=== PATIENT | male | born 1960 | race African-American/Black ===

== ENCOUNTER 2023-05-30 03:05 | Inpatient (IN) | payer SELFPAY ==
[2023-05-30 09:31] VITALS: BMI 21.1
[2023-05-30] MEDS ORDERED: Bisacodyl 5 MG TAB PO PRN (10:24)
[2023-05-30] MEDS ORDERED: Senokot S 8.6-50 MG TAB PO PRN (10:24)
[2023-05-30] MEDS ORDERED: Acetaminophen 650 MG Suppository PR PRN (10:24)
[2023-05-30] MEDS ORDERED: Bisacodyl 10 MG SUPP PR PRN (10:24)
[2023-05-30] MEDS ORDERED: Ondansetron PF 4 MG/2 ML Vial IVP PRN (10:24)
[2023-05-30] MEDS ORDERED: Lorazepam 2 MG/ML VIAL IM PRN (10:33)
[2023-05-30] MEDS ORDERED: Lorazepam 1 MG TAB PO PRN (10:33)
[2023-05-30] MEDS ORDERED: Electrolyte Replacement Protocol 1 EACH FS SCH (10:45)
[2023-05-30] MEDS ORDERED: Lorazepam 1 MG TAB PO SCH (10:45)
[2023-05-30] MEDS: Thiamine HCl 200 MG/2 ML VIAL SLOW IVP SCH (12:08)
[2023-05-30] MEDS ORDERED: Atorvastatin Calcium 40 MG TAB PO SCH (21:00)
[2023-05-31 07:36] LABS: #Eosinphils 0.2 thou/uL (0.0-0.7); #Monocytes 0.3 thou/uL (0.11-0.59); #Neutrophils 1.9 thou/uL (1.40-6.50); %Basophils 0.5 % (0.0-1.0); %Eosinophils 5.1 % (0.0-10.0); %Lymphocytes 34.6 % (21.0-51.0); %Monocytes 8.3 % (0.0-10.0); %Neutrophils 51.2 % (42.0-75.0); Hematocrit 40.4 % (42.0-52.0); Hemoglobin 13.2 g/dL (14.0-18.0); Mean Corpuscular HGB CONC 32.7 g/dL (32.0-36.0); Mean Corpuscular Hemoglobin 30.4 pg (27.0-31.0); Mean Corpuscular Volume 93.1 fl (78.0-98.0); Mean Platelet Volume 9.4 fL (7.4-10.4); Platelet Count 204 10x3/uL (130-400); RBC Distribution Width 14.6 % (11.5-14.5); Red Blood Cell (RBC) Count 4.34 mill/uL (4.70-6.10); White Blood Cell (WBC) Count 3.7 10x3/uL (4.8-10.8)
[2023-05-31 07:44] LABS: Hemoglobin A1c 5.2 % (4.0-6.0)
[2023-05-31 07:58] LABS: ALT (SGPT) Less than 7 U/L (8-55); AST (SGOT) 10 U/L (5-34); Albumin 3.2 g/dL (3.4-4.8); Alkaline Phosphatase 65 U/L (40-110); Bilirubin, Direct 0.3 mg/dL (0.1-0.3); Bilirubin, Total 0.6 mg/dL (0.2-1.2); Protein, Total 5.7 g/dL (5.8-8.1)
[2023-05-31 08:00] LABS: Anion Gap 8 mmol/L (10-20); BUN (Urea Nitrogen) 12 mg/dL (8.4-25.7); Calc. Creatinine Clearance 97 mL/min (70-130); Calcium 8.3 mg/dL (7.8-10.44); Carbon Dioxide 22 mmol/L (23-31); Cardiac Risk 2.3 (Less than 4.5); Chloride 111 mmol/L (98-107); Cholesterol 135 mg/dl (< 200 Desired); Estimated GFR 105; Glucose 100 mg/dL (80-115); HDL Cholesterol 58 mg/dL (>60 Neg Risk); LDL Cholesterol, Calculated 69 mg/dL; Magnesium 1.7 mg/dL (1.6-2.6); Potassium 3.4 mmol/L (3.5-5.1); Sodium 138 mmol/L (136-145); Triglycerides 38 mg/dL (Less than 150)
[2023-05-31] MEDS ORDERED: Potassium Chloride 20 MEQ TAB PO SCH (09:00)
[2023-05-31] MEDS ORDERED: Clopidogrel Bisulfate 75 MG TAB PO SCH (09:00)
[2023-05-31] MEDS ORDERED: Magnesium 2 GM/50 ML(in water) 2 GM in Premix Bag 1 BAG IVPB SCH (09:00)
[2023-05-31] MEDS: Aspirin 81 mg Enteric Coated Tablet PO SCH (09:29)
[2023-05-31] MEDS: Folic Acid 1 MG TAB PO SCH (09:30)
[2023-05-31] MEDS: Multivit, Therapeutic 1 TAB PO SCH (09:30)
[2023-05-31] MEDS ORDERED: Lorazepam 1 MG TAB PO PRN (10:33)
[2023-05-31] MEDS: Thiamine HCl 200 MG/2 ML VIAL SLOW IVP SCH (12:45)
[2023-05-31] MEDS: Sodium Chloride 0.9% 1,000 ML IV SCH (16:45)
[2023-05-31] MEDS: Dexamethasone 4 mg/ml Vial SLOW IVP SCH (20:28)
[2023-05-31] MEDS: Acetaminophen 325 MG TAB PO PRN (20:29)
[2023-06-01 05:24] LABS: #Monocytes 0.1 thou/uL (0.11-0.59); #Neutrophils 3.5 thou/uL (1.40-6.50); %Basophils 0.5 % (0.0-1.0); %Eosinophils 0.2 % (0.0-10.0); %Lymphocytes 16.2 % (21.0-51.0); %Monocytes 2.7 % (0.0-10.0); %Neutrophils 79.7 % (42.0-75.0); Hematocrit 42.3 % (42.0-52.0); Hemoglobin 13.9 g/dL (14.0-18.0); Mean Corpuscular HGB CONC 32.9 g/dL (32.0-36.0); Mean Corpuscular Hemoglobin 30.7 pg (27.0-31.0); Mean Corpuscular Volume 93.4 fl (78.0-98.0); Mean Platelet Volume 9.1 fL (7.4-10.4); Platelet Count 213 10x3/uL (130-400); RBC Distribution Width 14.4 % (11.5-14.5); Red Blood Cell (RBC) Count 4.53 mill/uL (4.70-6.10); White Blood Cell (WBC) Count 4.4 10x3/uL (4.8-10.8)
[2023-06-01 05:56] LABS: Anion Gap 9 mmol/L (10-20); BUN (Urea Nitrogen) 8 mg/dL (8.4-25.7); Calc. Creatinine Clearance 92 mL/min (70-130); Calcium 8.5 mg/dL (7.8-10.44); Carbon Dioxide 21 mmol/L (23-31); Chloride 108 mmol/L (98-107); Estimated GFR 104; Glucose 146 mg/dL (80-115); Magnesium 1.8 mg/dL (1.6-2.6); Potassium 3.9 mmol/L (3.5-5.1); Sodium 134 mmol/L (136-145)
[2023-06-01] MEDS: Sodium Chloride 0.9% 1,000 ML IV SCH (07:21)
[2023-06-01] MEDS ORDERED: Magnesium 2 GM/50 ML(in water) 2 GM in Premix Bag 1 BAG IVPB SCH (08:00)
[2023-06-01] MEDS: Multivit, Therapeutic 1 TAB PO SCH (08:51)
[2023-06-01] MEDS: Dexamethasone 4 mg/ml Vial SLOW IVP SCH ×3 (08:51→22:06)
[2023-06-01] MEDS: Folic Acid 1 MG TAB PO SCH (08:51)
[2023-06-01] MEDS: Aspirin 81 mg Enteric Coated Tablet PO SCH (08:51)
[2023-06-01] MEDS ORDERED: Lorazepam 1 MG TAB PO PRN (10:33)
[2023-06-01] MEDS ORDERED: Lorazepam 0.5 MG TAB PO SCH (10:45)
[2023-06-01] MEDS: Thiamine HCl 200 MG/2 ML VIAL SLOW IVP SCH (13:10)
[2023-06-01] MEDS: Acetaminophen 325 MG TAB PO PRN (22:05)
[2023-06-02 06:10] LABS: #Monocytes 0.3 thou/uL (0.11-0.59); #Neutrophils 8.8 thou/uL (1.40-6.50); %Basophils 0.1 % (0.0-1.0); %Lymphocytes 9.2 % (21.0-51.0); %Monocytes 2.7 % (0.0-10.0); %Neutrophils 87.5 % (42.0-75.0); Hematocrit 43.4 % (42.0-52.0); Hemoglobin 14.3 g/dL (14.0-18.0); Mean Corpuscular HGB CONC 32.9 g/dL (32.0-36.0); Mean Corpuscular Hemoglobin 30.6 pg (27.0-31.0); Mean Corpuscular Volume 92.7 fl (78.0-98.0); Mean Platelet Volume 9.3 fL (7.4-10.4); Platelet Count 241 10x3/uL (130-400); RBC Distribution Width 14.3 % (11.5-14.5); Red Blood Cell (RBC) Count 4.68 mill/uL (4.70-6.10)
[2023-06-02 06:31] LABS: Anion Gap 9 mmol/L (10-20); BUN (Urea Nitrogen) 9 mg/dL (8.4-25.7); Calc. Creatinine Clearance 93 mL/min (70-130); Calcium 8.9 mg/dL (7.8-10.44); Carbon Dioxide 21 mmol/L (23-31); Chloride 109 mmol/L (98-107); Estimated GFR 104; Glucose 117 mg/dL (80-115); Magnesium 1.8 mg/dL (1.6-2.6); Potassium 3.9 mmol/L (3.5-5.1); Sodium 135 mmol/L (136-145)
[2023-06-02] MEDS ORDERED: Magnesium 2 GM/50 ML(in water) 2 GM in Premix Bag 1 BAG IVPB SCH (08:00)
[2023-06-02] MEDS: Thiamine 100 MG TAB PO SCH (09:27)
[2023-06-02] MEDS: Aspirin 81 mg Enteric Coated Tablet PO SCH (09:27)
[2023-06-02] MEDS: Dexamethasone 4 mg/ml Vial SLOW IVP SCH ×3 (09:27→20:25)
[2023-06-02] MEDS: Multivit, Therapeutic 1 TAB PO SCH (09:27)
[2023-06-02] MEDS: Folic Acid 1 MG TAB PO SCH (09:27)
[2023-06-03 04:50] LABS: #Monocytes 0.3 thou/uL (0.11-0.59); #Neutrophils 8.5 thou/uL (1.40-6.50); %Basophils 0.1 % (0.0-1.0); %Lymphocytes 10.5 % (21.0-51.0); %Monocytes 3.1 % (0.0-10.0); %Neutrophils 85.6 % (42.0-75.0); Hematocrit 42.2 % (42.0-52.0); Hemoglobin 14.4 g/dL (14.0-18.0); Mean Corpuscular HGB CONC 34.1 g/dL (32.0-36.0); Mean Corpuscular Hemoglobin 31.3 pg (27.0-31.0); Mean Corpuscular Volume 91.7 fl (78.0-98.0); Mean Platelet Volume 9.6 fL (7.4-10.4); Platelet Count 252 10x3/uL (130-400); RBC Distribution Width 14.2 % (11.5-14.5); White Blood Cell (WBC) Count 9.9 10x3/uL (4.8-10.8)
[2023-06-03 05:18] LABS: Anion Gap 12 mmol/L (10-20); BUN (Urea Nitrogen) 13 mg/dL (8.4-25.7); Calc. Creatinine Clearance 90 mL/min (70-130); Calcium 8.8 mg/dL (7.8-10.44); Carbon Dioxide 24 mmol/L (23-31); Chloride 105 mmol/L (98-107); Estimated GFR 103; Glucose 102 mg/dL (80-115); Magnesium 1.9 mg/dL (1.6-2.6); Potassium 3.9 mmol/L (3.5-5.1); Sodium 137 mmol/L (136-145)
[2023-06-03] MEDS ORDERED: Magnesium 2 GM/50 ML(in water) 2 GM in Premix Bag 1 BAG IVPB SCH (08:00)
[2023-06-03] MEDS: Folic Acid 1 MG TAB PO SCH (09:33)
[2023-06-03] MEDS: Multivit, Therapeutic 1 TAB PO SCH (09:33)
[2023-06-03] MEDS: Dexamethasone 4 mg/ml Vial SLOW IVP SCH ×3 (09:33→19:56)
[2023-06-03] MEDS: Thiamine 100 MG TAB PO SCH (09:33)
[2023-06-04 07:54] LABS: #Monocytes 0.8 thou/uL (0.11-0.59); #Neutrophils 10.1 thou/uL (1.40-6.50); %Basophils 0.1 % (0.0-1.0); %Eosinophils 0.1 % (0.0-10.0); %Lymphocytes 10.5 % (21.0-51.0); %Monocytes 6.1 % (0.0-10.0); %Neutrophils 82.6 % (42.0-75.0); Hematocrit 44.1 % (42.0-52.0); Hemoglobin 14.3 g/dL (14.0-18.0); Mean Corpuscular HGB CONC 32.4 g/dL (32.0-36.0); Mean Corpuscular Hemoglobin 30.2 pg (27.0-31.0); Mean Corpuscular Volume 93.2 fl (78.0-98.0); Mean Platelet Volume 9.7 fL (7.4-10.4); Platelet Count 248 10x3/uL (130-400); RBC Distribution Width 14.5 % (11.5-14.5); Red Blood Cell (RBC) Count 4.73 mill/uL (4.70-6.10); White Blood Cell (WBC) Count 12.2 10x3/uL (4.8-10.8)
[2023-06-04 08:17] LABS: Anion Gap 11 mmol/L (10-20); BUN (Urea Nitrogen) 16 mg/dL (8.4-25.7); Calc. Creatinine Clearance 86 mL/min (70-130); Calcium 8.7 mg/dL (7.8-10.44); Carbon Dioxide 23 mmol/L (23-31); Chloride 108 mmol/L (98-107); Estimated GFR 101; Glucose 145 mg/dL (80-115); Potassium 3.5 mmol/L (3.5-5.1); Sodium 138 mmol/L (136-145)
[2023-06-04] MEDS ORDERED: Magnesium 2 GM/50 ML(in water) 2 GM in Premix Bag 1 BAG IVPB SCH (08:30)
[2023-06-04] MEDS ORDERED: Potassium Chloride 20 MEQ TAB PO SCH (08:45)
[2023-06-04] MEDS: Folic Acid 1 MG TAB PO SCH (08:49)
[2023-06-04] MEDS: Dexamethasone 4 mg/ml Vial SLOW IVP SCH ×3 (08:49→20:06)
[2023-06-04] MEDS: Multivit, Therapeutic 1 TAB PO SCH (08:49)
[2023-06-04] MEDS: Thiamine 100 MG TAB PO SCH (08:49)
[2023-06-05] MEDS: Multivit, Therapeutic 1 TAB PO SCH (09:13)
[2023-06-05] MEDS: Folic Acid 1 MG TAB PO SCH (09:13)
[2023-06-05] MEDS: Thiamine 100 MG TAB PO SCH (09:13)
[2023-06-05] MEDS: Dexamethasone 4 mg/ml Vial SLOW IVP SCH ×3 (09:13→21:04)
[2023-06-06] MEDS: Dexamethasone 4 mg/ml Vial SLOW IVP SCH ×3 (08:23→22:49)
[2023-06-06] MEDS: Multivit, Therapeutic 1 TAB PO SCH (08:23)
[2023-06-06] MEDS: Thiamine 100 MG TAB PO SCH (08:23)
[2023-06-06] MEDS: Folic Acid 1 MG TAB PO SCH (08:23)
[2023-06-06] MEDS: Acetaminophen 325 MG TAB PO PRN (22:49)
[2023-06-06] MEDS: Lorazepam 0.5 MG TAB PO PRN (22:50)
[2023-06-07 07:11] LABS: #Monocytes 0.5 thou/uL (0.11-0.59); #Neutrophils 10.2 thou/uL (1.40-6.50); %Basophils 0.1 % (0.0-1.0); %Eosinophils 0.1 % (0.0-10.0); %Lymphocytes 8.7 % (21.0-51.0); %Monocytes 4.5 % (0.0-10.0); %Neutrophils 85.3 % (42.0-75.0); Hematocrit 42.4 % (42.0-52.0); Hemoglobin 13.8 g/dL (14.0-18.0); Mean Corpuscular HGB CONC 32.5 g/dL (32.0-36.0); Mean Corpuscular Hemoglobin 30.6 pg (27.0-31.0); Mean Platelet Volume 9.6 fL (7.4-10.4); Platelet Count 254 10x3/uL (130-400); RBC Distribution Width 14.6 % (11.5-14.5); Red Blood Cell (RBC) Count 4.51 mill/uL (4.70-6.10); White Blood Cell (WBC) Count 11.9 10x3/uL (4.8-10.8)
[2023-06-07 07:27] LABS: INR-International Normal Ratio 0.9; Prothrombin Time 12.5 sec (12.0-14.7)
[2023-06-07 07:34] LABS: PTT 22.7 sec (22.9-36.1)
[2023-06-07] MEDS: Folic Acid 1 MG TAB PO SCH (09:09)
[2023-06-07] MEDS: Thiamine 100 MG TAB PO SCH (09:09)
[2023-06-07] MEDS: Dexamethasone 4 mg/ml Vial SLOW IVP SCH ×3 (09:09→22:16)
[2023-06-07] MEDS: Multivit, Therapeutic 1 TAB PO SCH (09:09)
[2023-06-07] MEDS: Acetaminophen 325 MG TAB PO PRN (18:14)
[2023-06-07] MEDS: Lorazepam 0.5 MG TAB PO PRN (22:16)
[2023-06-08] MEDS: Dexamethasone 4 mg/ml Vial SLOW IVP SCH ×3 (08:20→21:06)
[2023-06-08] MEDS: Thiamine 100 MG TAB PO SCH (08:21)
[2023-06-08] MEDS: Multivit, Therapeutic 1 TAB PO SCH (08:21)
[2023-06-08] MEDS: Folic Acid 1 MG TAB PO SCH (08:21)
[2023-06-08] MEDS ORDERED: CEFAZOLIN 2 GM in Sodium Chloride 0.9% 100 ML IVPB SCH (09:00)
[2023-06-08] MEDS ORDERED: Bacitracin Zinc Ointment 30 gm TUBE ONE (11:01)
[2023-06-08] MEDS ORDERED: EPINEPHrine 1 MG/ML AMP ONE ×2 (11:01→11:06)
[2023-06-08] MEDS ORDERED: Bupivacaine PF 0.5% 30 ML VIAL ONE ×2 (11:01→11:06)
[2023-06-08] MEDS ORDERED: Vancomycin 1 GM VIAL ONE ×2 (11:01→11:06)
[2023-06-08] MEDS ORDERED: Thrombin 5000 UNITS/5 ML VIAL ONE ×2 (11:01→11:06)
[2023-06-08] MEDS ORDERED: Fentanyl 250 MCG/5 ML VIAL ONE (11:43)
[2023-06-08] MEDS ORDERED: Magnesium 5 GM/10 ML VIAL ONE (11:43)
[2023-06-08] MEDS ORDERED: diphenhydrAMINE 50 MG/ML VIAL IVP PRN (11:53)
[2023-06-08] MEDS ORDERED: Morphine 2 MG/ML VIAL SLOW IVP PRN (11:53)
[2023-06-08] MEDS ORDERED: Acetaminophen/Codeine 30-300mg Tablet PO PRN (11:53)
[2023-06-08] MEDS ORDERED: Sodium Chloride 0.9% 100 ML ONE (12:00)
[2023-06-08] MEDS ORDERED: CEFAZOLIN 2 GM VIAL ONE (12:00)
[2023-06-08] MEDS ORDERED: PROPOFOL 200 MG/20 ML VIAL ONE (12:11)
[2023-06-08] MEDS ORDERED: PHENYLEPHRINE-NS 100 MCG/ML 10 ML SYRINGE ONE (12:11)
[2023-06-08] MEDS ORDERED: Dexamethasone 20 MG/5 ML VIAL ONE (12:11)
[2023-06-08] MEDS ORDERED: Rocuronium Bromide 10 MG/ML (10ML VIAL) ONE (12:11)
[2023-06-08] MEDS ORDERED: Vecuronium 10 MG VIAL ONE (12:11)
[2023-06-08] MEDS ORDERED: Ondansetron PF 4 MG/2 ML Vial ONE (12:11)
[2023-06-08] MEDS ORDERED: ePHEDrine Sulfate 50 MG/10 ML VIAL ONE (12:11)
[2023-06-08] MEDS ORDERED: Phenylephrine 10 MG/ML VIAL ONE (12:28)
[2023-06-08] MEDS ORDERED: SUGAMMADEX SODIUM 200 MG/2 ML VIAL ONE (13:37)
[2023-06-08] MEDS: Sodium Chloride 0.9% 1,000 ML IV SCH (15:02)
[2023-06-08] MEDS: HYDROcodone/Acetaminophen 10/325 mg Tablet PO PRN ×2 (15:14→21:07)
[2023-06-08] MEDS: CEFAZOLIN 2 GM in Sodium Chloride 0.9% 100 ML IVPB SCH (21:06)
[2023-06-09] MEDS: HYDROcodone/Acetaminophen 10/325 mg Tablet PO PRN ×2 (03:31→09:15)
[2023-06-09] MEDS: Lorazepam 0.5 MG TAB PO PRN ×2 (03:32→12:48)
[2023-06-09] MEDS: CEFAZOLIN 2 GM in Sodium Chloride 0.9% 100 ML IVPB SCH (03:33)
[2023-06-09] MEDS: Sodium Chloride 0.9% 1,000 ML IV SCH ×2 (03:33→15:38)
[2023-06-09 08:00] LABS: #Basophils 0.1 thou/uL (0.0-0.2); #Eosinphils 0.1 thou/uL (0.0-0.7); #Monocytes 1.2 thou/uL (0.11-0.59); %Basophils 0.3 % (0.0-1.0); %Eosinophils 0.4 % (0.0-10.0); %Lymphocytes 6.1 % (21.0-51.0); %Monocytes 7.2 % (0.0-10.0); %Neutrophils 83.9 % (42.0-75.0); Hematocrit 41.6 % (42.0-52.0); Hemoglobin 13.8 g/dL (14.0-18.0); Mean Corpuscular HGB CONC 33.2 g/dL (32.0-36.0); Mean Corpuscular Hemoglobin 30.8 pg (27.0-31.0); Mean Corpuscular Volume 92.9 fl (78.0-98.0); Mean Platelet Volume 9.9 fL (7.4-10.4); Platelet Count 260 10x3/uL (130-400); RBC Distribution Width 14.9 % (11.5-14.5); Red Blood Cell (RBC) Count 4.48 mill/uL (4.70-6.10); White Blood Cell (WBC) Count 16.7 10x3/uL (4.8-10.8)
[2023-06-09] MEDS: Dexamethasone 4 mg/ml Vial SLOW IVP SCH ×3 (09:10→21:20)
[2023-06-09] MEDS: Thiamine 100 MG TAB PO SCH (09:11)
[2023-06-09] MEDS: Multivit, Therapeutic 1 TAB PO SCH (09:11)
[2023-06-09] MEDS: Folic Acid 1 MG TAB PO SCH (09:11)
[2023-06-10] MEDS: Sodium Chloride 0.9% 1,000 ML IV SCH ×2 (03:49→17:30)
[2023-06-10 06:34] LABS: #Neutrophils 11.2 thou/uL (1.40-6.50); %Basophils 0.3 % (0.0-1.0); %Eosinophils 0.1 % (0.0-10.0); %Lymphocytes 8.6 % (21.0-51.0); %Monocytes 7.3 % (0.0-10.0); %Neutrophils 80.1 % (42.0-75.0); Hematocrit 39.7 % (42.0-52.0); Hemoglobin 13.3 g/dL (14.0-18.0); Mean Corpuscular HGB CONC 33.5 g/dL (32.0-36.0); Mean Corpuscular Hemoglobin 30.5 pg (27.0-31.0); Mean Corpuscular Volume 91.1 fl (78.0-98.0); Mean Platelet Volume 9.7 fL (7.4-10.4); Platelet Count 267 10x3/uL (130-400); RBC Distribution Width 14.9 % (11.5-14.5); Red Blood Cell (RBC) Count 4.36 mill/uL (4.70-6.10)
[2023-06-10 06:54] LABS: Anion Gap 13 mmol/L (10-20); BUN (Urea Nitrogen) 15 mg/dL (8.4-25.7); Calc. Creatinine Clearance 99 mL/min (70-130); Calcium 8.4 mg/dL (7.8-10.44); Carbon Dioxide 26 mmol/L (23-31); Chloride 102 mmol/L (98-107); Estimated GFR 106; Glucose 115 mg/dL (80-115); Sodium 137 mmol/L (136-145)
[2023-06-10] MEDS: Multivit, Therapeutic 1 TAB PO SCH (09:14)
[2023-06-10] MEDS: Folic Acid 1 MG TAB PO SCH (09:14)
[2023-06-10] MEDS: Dexamethasone 4 mg/ml Vial SLOW IVP SCH ×3 (09:15→21:02)
[2023-06-10] MEDS: Thiamine 100 MG TAB PO SCH (09:20)
[2023-06-10] MEDS: HYDROcodone/Acetaminophen 10/325 mg Tablet PO PRN ×3 (09:30→21:03)
[2023-06-11] MEDS: Sodium Chloride 0.9% 1,000 ML IV SCH ×2 (05:57→17:20)
[2023-06-11 06:32] LABS: Hematocrit 38.6 % (42.0-52.0); Hemoglobin 12.8 g/dL (14.0-18.0); Mean Corpuscular HGB CONC 33.2 g/dL (32.0-36.0); Mean Corpuscular Volume 93.5 fl (78.0-98.0); Mean Platelet Volume 9.4 fL (7.4-10.4); Platelet Count 251 10x3/uL (130-400); RBC Distribution Width 14.9 % (11.5-14.5); Red Blood Cell (RBC) Count 4.13 mill/uL (4.70-6.10); White Blood Cell (WBC) Count 16.8 10x3/uL (4.8-10.8)
[2023-06-11 06:44] LABS: Delete Auto Diff?? YES; Manual Diff?? YES
[2023-06-11] MEDS: HYDROcodone/Acetaminophen 10/325 mg Tablet PO PRN ×2 (06:47→15:50)
[2023-06-11 06:51] LABS: Anion Gap 17 mmol/L (10-20); BUN (Urea Nitrogen) 16 mg/dL (8.4-25.7); Calc. Creatinine Clearance 93 mL/min (70-130); Calcium 8.8 mg/dL (7.8-10.44); Carbon Dioxide 23 mmol/L (23-31); Chloride 101 mmol/L (98-107); Estimated GFR 104; Glucose 134 mg/dL (80-115); Potassium 4.4 mmol/L (3.5-5.1); Sodium 137 mmol/L (136-145)
[2023-06-11 07:27] LABS: Band 8 % (5-11); CellaVision Operator ID LAB.GE; Eosinophils 1 % (0-10); Lymphocytes 6 % (21-51); Metamyelocyte 1 % (0-0); Monocytes 7 % (0-10); Myelocyte 1 % (0-0); Neutrophil 75 % (42-75); Nucleated RBC (Manual Ct) 1 % (0); Platelet Adequacy Comment Platelets Normal; Polychromasia SLIGHT = 2-3 cells HPF (0-2); Reactive Lymphocytes 1 % (0-10); Total Cell Count 99
[2023-06-11] MEDS: Cyclobenzaprine 10 MG TAB PO PRN (09:54)
[2023-06-11] MEDS: Thiamine 100 MG TAB PO SCH (09:55)
[2023-06-11] MEDS: Folic Acid 1 MG TAB PO SCH (09:55)
[2023-06-11] MEDS: Multivit, Therapeutic 1 TAB PO SCH (09:55)
[2023-06-11] MEDS: Dexamethasone 4 mg/ml Vial SLOW IVP SCH ×3 (09:58→20:52)
[2023-06-12 06:34] LABS: Hemoglobin 12.1 g/dL (14.0-18.0); Mean Corpuscular HGB CONC 33.6 g/dL (32.0-36.0); Mean Corpuscular Hemoglobin 31.3 pg (27.0-31.0); Mean Platelet Volume 9.7 fL (7.4-10.4); Platelet Count 238 10x3/uL (130-400); RBC Distribution Width 15.5 % (11.5-14.5); Red Blood Cell (RBC) Count 3.87 mill/uL (4.70-6.10); White Blood Cell (WBC) Count 19.9 10x3/uL (4.8-10.8)
[2023-06-12 06:36] LABS: Delete Auto Diff?? YES; Manual Diff?? YES
[2023-06-12 06:58] LABS: Anion Gap 13 mmol/L (10-20); BUN (Urea Nitrogen) 15 mg/dL (8.4-25.7); Calc. Creatinine Clearance 92 mL/min (70-130); Calcium 8.5 mg/dL (7.8-10.44); Carbon Dioxide 24 mmol/L (23-31); Chloride 105 mmol/L (98-107); Estimated GFR 104; Glucose 127 mg/dL (80-115); Potassium 4.2 mmol/L (3.5-5.1); Sodium 138 mmol/L (136-145)
[2023-06-12 07:24] LABS: Anisocytosis SLIGHT = 6-15 cells HPF (0-5); CellaVision Operator ID LAB.NR; Hypochromia SLIGHT = 6-15 cells HPF (0-5); Lymphocytes 8 % (21-51); Macrocytosis SLIGHT = 6-15 cells HPF (0-5); Monocytes 10 % (0-10); Neutrophil 82 % (42-75); Ovalocytes SLIGHT = 2-5 cells HPF (0-1); Platelet Adequacy Comment Platelets Normal; Polychromasia SLIGHT = 2-3 cells HPF (0-2); Total Cell Count 100
[2023-06-12] MEDS: Thiamine 100 MG TAB PO SCH (08:55)
[2023-06-12] MEDS: Acetaminophen 325 MG TAB PO PRN (08:55)
[2023-06-12] MEDS: Dexamethasone 4 mg/ml Vial SLOW IVP SCH ×3 (08:55→20:22)
[2023-06-12] MEDS: Folic Acid 1 MG TAB PO SCH (08:56)
[2023-06-12] MEDS: Multivit, Therapeutic 1 TAB PO SCH (08:56)
[2023-06-12] MEDS: Sodium Chloride 0.9% 1,000 ML IV SCH ×2 (09:56→20:24)
[2023-06-12] MEDS: Cyclobenzaprine 10 MG TAB PO PRN (20:21)
[2023-06-12] MEDS: HYDROcodone/Acetaminophen 7.5/325 mg Tablet PO PRN (20:21)
[2023-06-13] MEDS: HYDROcodone/Acetaminophen 10/325 mg Tablet PO PRN ×2 (00:34→19:27)
[2023-06-13 06:23] LABS: #Basophils 0.1 thou/uL (0.0-0.2); #Eosinphils 0.1 thou/uL (0.0-0.7); #Monocytes 1.1 thou/uL (0.11-0.59); #Neutrophils 17.5 thou/uL (1.40-6.50); %Basophils 0.6 % (0.0-1.0); %Eosinophils 0.3 % (0.0-10.0); %Lymphocytes 6.2 % (21.0-51.0); %Monocytes 4.8 % (0.0-10.0); %Neutrophils 79.2 % (42.0-75.0); Hematocrit 35.6 % (42.0-52.0); Hemoglobin 11.6 g/dL (14.0-18.0); Mean Corpuscular HGB CONC 32.6 g/dL (32.0-36.0); Mean Corpuscular Hemoglobin 30.6 pg (27.0-31.0); Mean Corpuscular Volume 93.9 fl (78.0-98.0); Mean Platelet Volume 9.8 fL (7.4-10.4); Platelet Count 245 10x3/uL (130-400); RBC Distribution Width 15.5 % (11.5-14.5); Red Blood Cell (RBC) Count 3.79 mill/uL (4.70-6.10)
[2023-06-13 06:49] LABS: Manual Diff?? YES
[2023-06-13 07:25] LABS: Anisocytosis SLIGHT = 6-15 cells HPF (0-5); Band 4 % (5-11); CellaVision Operator ID LAB.NR; Hypochromia SLIGHT = 6-15 cells HPF (0-5); Lymphocytes 6 % (21-51); Macrocytosis SLIGHT = 6-15 cells HPF (0-5); Monocytes 10 % (0-10); Neutrophil 80 % (42-75); Ovalocytes SLIGHT = 2-5 cells HPF (0-1); Platelet Adequacy Comment Platelets Normal; Smudge Cells 11.9 %; Total Cell Count 101
[2023-06-13] MEDS: Dexamethasone 4 mg/ml Vial SLOW IVP SCH ×3 (10:06→21:11)
[2023-06-13] MEDS: Folic Acid 1 MG TAB PO SCH (10:06)
[2023-06-13] MEDS: Thiamine 100 MG TAB PO SCH (10:06)
[2023-06-13] MEDS: Multivit, Therapeutic 1 TAB PO SCH (10:07)
[2023-06-13] MEDS: Sodium Chloride 0.9% 1,000 ML IV SCH (12:29)
[2023-06-13] MEDS ORDERED: Famotidine 20 MG TAB PO SCH (21:00)
[2023-06-13] MEDS ORDERED: Heparin 5,000 UNITS/ML VIAL SC SCH (21:00)
[2023-06-13] MEDS: Cyclobenzaprine 10 MG TAB PO PRN (21:11)
[2023-06-14 06:00] LABS: Hemoglobin 12.3 g/dL (14.0-18.0); Mean Corpuscular HGB CONC 33.2 g/dL (32.0-36.0); Mean Corpuscular Hemoglobin 30.8 pg (27.0-31.0); Mean Corpuscular Volume 92.7 fl (78.0-98.0); Mean Platelet Volume 9.8 fL (7.4-10.4); Platelet Count 257 10x3/uL (130-400); RBC Distribution Width 15.6 % (11.5-14.5); Red Blood Cell (RBC) Count 3.99 mill/uL (4.70-6.10); White Blood Cell (WBC) Count 27.3 10x3/uL (4.8-10.8)
[2023-06-14 06:01] LABS: Delete Auto Diff?? YES; Manual Diff?? YES
[2023-06-14 06:24] LABS: Band 25 % (5-11); CellaVision Operator ID LAB.CLH1; Eosinophils 1 % (0-10); Hypochromia SLIGHT = 6-15 cells HPF (0-5); Lymphocytes 6 % (21-51); Monocytes 3 % (0-10); Neutrophil 65 % (42-75); Platelet Adequacy Comment Platelets Normal; Total Cell Count 100
[2023-06-14 06:26] LABS: Anion Gap 16 mmol/L (10-20); BUN (Urea Nitrogen) 13 mg/dL (8.4-25.7); Calc. Creatinine Clearance 90 mL/min (70-130); Calcium 8.8 mg/dL (7.8-10.44); Carbon Dioxide 23 mmol/L (23-31); Chloride 103 mmol/L (98-107); Estimated GFR 103; Glucose 167 mg/dL (80-115); Potassium 4.1 mmol/L (3.5-5.1); Sodium 138 mmol/L (136-145)
[2023-06-14] MEDS: Sodium Chloride 0.9% 1,000 ML IV SCH ×2 (06:52→21:10)
[2023-06-14] MEDS: Cyclobenzaprine 10 MG TAB PO PRN (07:53)
[2023-06-14] MEDS: HYDROcodone/Acetaminophen 7.5/325 mg Tablet PO PRN (08:00)
[2023-06-14] MEDS: Thiamine 100 MG TAB PO SCH (14:55)
[2023-06-14] MEDS: Dexamethasone 4 mg/ml Vial SLOW IVP SCH ×2 (15:00→21:03)
[2023-06-14] MEDS: Folic Acid 1 MG TAB PO SCH (15:05)
[2023-06-14] MEDS: Multivit, Therapeutic 1 TAB PO SCH (15:05)
[2023-06-15] MEDS: Sodium Chloride 0.9% 1,000 ML IV SCH ×2 (05:12→16:39)
[2023-06-15 06:36] LABS: #Basophils 0.1 thou/uL (0.0-0.2); #Eosinphils 0.1 thou/uL (0.0-0.7); #Monocytes 1.2 thou/uL (0.11-0.59); #Neutrophils 22.1 thou/uL (1.40-6.50); %Basophils 0.4 % (0.0-1.0); %Eosinophils 0.4 % (0.0-10.0); %Lymphocytes 5.8 % (21.0-51.0); %Monocytes 4.2 % (0.0-10.0); %Neutrophils 80.3 % (42.0-75.0); Hemoglobin 11.8 g/dL (14.0-18.0); Mean Corpuscular HGB CONC 32.8 g/dL (32.0-36.0); Mean Corpuscular Hemoglobin 30.3 pg (27.0-31.0); Mean Corpuscular Volume 92.5 fl (78.0-98.0); Mean Platelet Volume 9.7 fL (7.4-10.4); Platelet Count 245 10x3/uL (130-400); RBC Distribution Width 15.9 % (11.5-14.5); Red Blood Cell (RBC) Count 3.89 mill/uL (4.70-6.10); White Blood Cell (WBC) Count 27.5 10x3/uL (4.8-10.8)
[2023-06-15 06:46] LABS: Manual Diff?? YES
[2023-06-15 06:56] LABS: Anion Gap 12 mmol/L (10-20); BUN (Urea Nitrogen) 13 mg/dL (8.4-25.7); Calc. Creatinine Clearance 85 mL/min (70-130); Carbon Dioxide 28 mmol/L (23-31); Chloride 103 mmol/L (98-107); Estimated GFR 101; Glucose 115 mg/dL (80-115); Potassium 4.2 mmol/L (3.5-5.1); Sodium 139 mmol/L (136-145)
[2023-06-15 07:07] LABS: Bacteria/HPF None Seen HPF (None Seen); Bilirubin Negative (Negative); Blood, Urine Trace (Negative); Clarity Clear (Clear); Glucose, Urine (Dipstick) Normal (Negative); Ketone, Urine Negative (Negative); Leukocyte Negative Leu/uL (Negative); Nitrite Negative (Negative); Protein, Urine (Dipstick) Negative (Neg-Trace); Specific Gravity, Urine 1.008 (1.002-1.036); Squamous Epithelial None Seen HPF (0-3); Urobilinogen Normal mg/dL (Less than 2); WBC/HPF 0-3 HPF (0-3)
[2023-06-15 07:11] LABS: Unclassified Crystals None Seen HPF (None Seen)
[2023-06-15] MEDS: Dexamethasone 4 mg/ml Vial SLOW IVP SCH ×4 (07:13→20:04)
[2023-06-15 07:35] LABS: Band 16 % (5-11); CellaVision Operator ID LAB.GE; Lymphocytes 5 % (21-51); Metamyelocyte 2 % (0-0); Monocytes 3 % (0-10); Myelocyte 2 % (0-0); Neutrophil 69 % (42-75); Platelet Adequacy Comment Platelets Normal; Polychromasia SLIGHT = 2-3 cells HPF (0-2); Reactive Lymphocytes 3 % (0-10); Total Cell Count 102
[2023-06-15] MEDS: Thiamine 100 MG TAB PO SCH (09:21)
[2023-06-15] MEDS: Folic Acid 1 MG TAB PO SCH (09:21)
[2023-06-15] MEDS: Multivit, Therapeutic 1 TAB PO SCH (09:21)
[2023-06-15] MEDS: Senokot S 8.6-50 MG TAB PO SCH ×2 (10:50→20:04)
[2023-06-15] MEDS: HYDROcodone/Acetaminophen 10/325 mg Tablet PO PRN ×2 (16:42→23:17)
[2023-06-15] MEDS: Cyclobenzaprine 10 MG TAB PO PRN (20:04)
[2023-06-16] MEDS: HYDROcodone/Acetaminophen 10/325 mg Tablet PO PRN ×3 (04:14→20:34)
[2023-06-16] MEDS: Sodium Chloride 0.9% 1,000 ML IV SCH ×2 (06:36→20:36)
[2023-06-16 07:09] LABS: Hematocrit 35.2 % (42.0-52.0); Hemoglobin 11.8 g/dL (14.0-18.0); Mean Corpuscular HGB CONC 33.5 g/dL (32.0-36.0); Mean Corpuscular Hemoglobin 30.6 pg (27.0-31.0); Mean Corpuscular Volume 91.4 fl (78.0-98.0); Mean Platelet Volume 9.5 fL (7.4-10.4); Platelet Count 215 10x3/uL (130-400); RBC Distribution Width 15.9 % (11.5-14.5); Red Blood Cell (RBC) Count 3.85 mill/uL (4.70-6.10); White Blood Cell (WBC) Count 20.6 10x3/uL (4.8-10.8)
[2023-06-16 07:31] LABS: Delete Auto Diff?? YES; Manual Diff?? YES
[2023-06-16 08:14] LABS: Band 17 % (5-11); CellaVision Operator ID LAB.GE; Lymphocytes 6 % (21-51); Metamyelocyte 1 % (0-0); Monocytes 5 % (0-10); Myelocyte 4 % (0-0); Neutrophil 67 % (42-75); Platelet Adequacy Comment Platelets Normal; Polychromasia SLIGHT = 2-3 cells HPF (0-2); Total Cell Count 100
[2023-06-16] MEDS: Cyclobenzaprine 10 MG TAB PO PRN ×2 (08:45→20:34)
[2023-06-16] MEDS: Folic Acid 1 MG TAB PO SCH (08:45)
[2023-06-16] MEDS: Senokot S 8.6-50 MG TAB PO SCH ×2 (08:46→20:34)
[2023-06-16] MEDS: Thiamine 100 MG TAB PO SCH (08:47)
[2023-06-16] MEDS: Multivit, Therapeutic 1 TAB PO SCH (08:47)
[2023-06-16] MEDS ORDERED: Dexamethasone 4 mg/ml Vial SLOW IVP SCH (09:00)
[2023-06-16] MEDS: cefTRIAXone\\ROCEPHIN 1 GM in Sodium Chloride 0.9% 100 ML IVPB SCH (10:46)
[2023-06-17] MEDS: HYDROcodone/Acetaminophen 10/325 mg Tablet PO PRN (00:40)
[2023-06-17] MEDS: Cyclobenzaprine 10 MG TAB PO PRN ×2 (05:37→20:07)
[2023-06-17 05:42] LABS: Hematocrit 34.2 % (42.0-52.0); Hemoglobin 11.4 g/dL (14.0-18.0); Mean Corpuscular HGB CONC 33.3 g/dL (32.0-36.0); Mean Corpuscular Hemoglobin 30.8 pg (27.0-31.0); Mean Corpuscular Volume 92.4 fl (78.0-98.0); Mean Platelet Volume 9.6 fL (7.4-10.4); Platelet Count 218 10x3/uL (130-400); RBC Distribution Width 15.7 % (11.5-14.5); White Blood Cell (WBC) Count 19.9 10x3/uL (4.8-10.8)
[2023-06-17 05:46] LABS: Delete Auto Diff?? YES; Manual Diff?? YES
[2023-06-17 06:04] LABS: Anion Gap 11 mmol/L (10-20); BUN (Urea Nitrogen) 18 mg/dL (8.4-25.7); Calc. Creatinine Clearance 96 mL/min (70-130); Carbon Dioxide 29 mmol/L (23-31); Chloride 101 mmol/L (98-107); Estimated GFR 105; Glucose 103 mg/dL (80-115); Potassium 4.3 mmol/L (3.5-5.1); Sodium 137 mmol/L (136-145)
[2023-06-17 06:14] LABS: Anisocytosis SLIGHT = 6-15 cells HPF (0-5); Band 9 % (5-11); CellaVision Operator ID lab.sh2; Hypochromia SLIGHT = 6-15 cells HPF (0-5); Lymphocytes 6 % (21-51); Macrocytosis SLIGHT = 6-15 cells HPF (0-5); Monocytes 7 % (0-10); Neutrophil 78 % (42-75); Platelet Adequacy Comment Platelets Normal; Polychromasia SLIGHT = 2-3 cells HPF (0-2); Smudge Cells 21.6 %; Target Cells SLIGHT = 2-5 cells HPF (0-1); Total Cell Count 102
[2023-06-17] MEDS: Sodium Chloride 0.9% 1,000 ML IV SCH ×2 (09:13→20:09)
[2023-06-17] MEDS: Senokot S 8.6-50 MG TAB PO SCH ×2 (09:14→20:07)
[2023-06-17] MEDS: Folic Acid 1 MG TAB PO SCH (09:15)
[2023-06-17] MEDS: Multivit, Therapeutic 1 TAB PO SCH (09:15)
[2023-06-17] MEDS: Thiamine 100 MG TAB PO SCH (09:15)
[2023-06-17] MEDS: cefTRIAXone\\ROCEPHIN 1 GM in Sodium Chloride 0.9% 100 ML IVPB SCH (09:15)
[2023-06-17] MEDS: HYDROcodone/Acetaminophen 7.5/325 mg Tablet PO PRN ×2 (14:30→20:07)
[2023-06-18] MEDS: Cyclobenzaprine 10 MG TAB PO PRN ×2 (03:37→09:11)
[2023-06-18] MEDS: HYDROcodone/Acetaminophen 10/325 mg Tablet PO PRN ×3 (05:02→21:33)
[2023-06-18 07:21] LABS: Hematocrit 34.1 % (42.0-52.0); Hemoglobin 11.4 g/dL (14.0-18.0); Mean Corpuscular HGB CONC 33.4 g/dL (32.0-36.0); Mean Corpuscular Hemoglobin 30.9 pg (27.0-31.0); Mean Corpuscular Volume 92.4 fl (78.0-98.0); Mean Platelet Volume 9.6 fL (7.4-10.4); Platelet Count 214 10x3/uL (130-400); RBC Distribution Width 15.9 % (11.5-14.5); Red Blood Cell (RBC) Count 3.69 mill/uL (4.70-6.10); White Blood Cell (WBC) Count 13.6 10x3/uL (4.8-10.8)
[2023-06-18 07:28] LABS: Delete Auto Diff?? YES; Manual Diff?? YES
[2023-06-18 07:54] LABS: Anisocytosis SLIGHT = 6-15 cells HPF (0-5); Band 14 % (5-11); CellaVision Operator ID LAB.MJL; Eosinophils 2 % (0-10); Lymphocytes 18 % (21-51); Metamyelocyte 3 % (0-0); Monocytes 11 % (0-10); Myelocyte 7 % (0-0); Neutrophil 44 % (42-75); Platelet Adequacy Comment Platelets Normal; Poikilocytosis SLIGHT = 6-15 cells HPF (0-5); Polychromasia SLIGHT = 2-3 cells HPF (0-2); Reactive Lymphocytes 1 % (0-10); Schistocytes SLIGHT = 2-5 cells HPF (0-1); Target Cells SLIGHT = 2-5 cells HPF (0-1); Total Cell Count 100
[2023-06-18] MEDS: Folic Acid 1 MG TAB PO SCH (09:11)
[2023-06-18] MEDS: Thiamine 100 MG TAB PO SCH (09:11)
[2023-06-18] MEDS: Multivit, Therapeutic 1 TAB PO SCH (09:11)
[2023-06-18] MEDS: Senokot S 8.6-50 MG TAB PO SCH ×2 (09:12→21:30)
[2023-06-19] MEDS: Multivit, Therapeutic 1 TAB PO SCH (09:42)
[2023-06-19] MEDS: Thiamine 100 MG TAB PO SCH (09:42)
[2023-06-19] MEDS: Cyclobenzaprine 10 MG TAB PO PRN (09:42)
[2023-06-19] MEDS: Senokot S 8.6-50 MG TAB PO SCH (09:42)
[2023-06-19] MEDS: Folic Acid 1 MG TAB PO SCH (09:42)
[2023-06-19 12:31] VITALS: TEMP 98.4
[2023-06-19 12:33] VITALS: BP 110/69
== END 2023-06-19 14:56 | disposition home or self-care (01) | DRG 519 ==
LOC: 2SE 07:09 → INTOOBSV 07:09 → OBSVTOIN 15:09 → SURG B 06-03 15:24
PROVIDERS: ADMIT Student in an Organized Health Care Education/Training Program; ATTEND Internal Medicine
PROC: 00NW0ZZ Release Cervical Spinal Cord, Open Approach (ICD-10-PCS; principal; 2023-06-08)
DX: M48.02 Spinal stenosis, cervical region (principal); G81.91 Hemiplegia, unspecified affecting right dominant side; M47.12 Other spondylosis with myelopathy, cervical region; G95.89 Other specified diseases of spinal cord; E87.6 Hypokalemia; E83.42 Hypomagnesemia; F14.10 Cocaine abuse, uncomplicated; R00.1 Bradycardia, unspecified; D72.829 Elevated white blood cell count, unspecified; R73.9 Hyperglycemia, unspecified; Z79.899 Other long term (current) drug therapy; Z87.891 Personal history of nicotine dependence; Z71.6 Tobacco abuse counseling
CPT/HCPCS: 36415; 70450; 70551; 71045; 72141; 74018; 80048; 80061; 80076; 81001; 83036; 83735; 84443; 85025; 85610; 85730; 87040; 87086; 93306; 93880; 93970; 96374; 96375; 96376; G0378; J0171; J0696; J1100; J2272; J2370; J2405; J2704; J3010; J3370; J3411; J3475; J3490; J7050; S0020